=== PATIENT | female | born 1995 | race Caucasian/White ===

== ENCOUNTER 2017-06-29 13:11 | Emergency (ER) | payer SELFPAY ==
[~2017-06-29] VITALS: Ht 154.9 cm; Wt 68.2 kg
[~2017-06-29 13:11] MED LIST: BENZ1TAB7 PO; DESM0.2T23 PO; DOCU-20 PO; IBUP-1985 PO; LITH450T2 PO; NORG1TAB13 PO; PRAZ1CAP5 PO; QUET-1 PO
[2017-06-29 13:31] VITALS: BP 125/70
== END 2017-06-29 18:57 | disposition home or self-care (01) ==
LOC: ER 13:12
DX: N89.8 Other specified noninflammatory disorders of vagina (principal); R10.2 Pelvic and perineal pain; Z88.6 Allergy status to analgesic agent
CPT/HCPCS: 99281